=== PATIENT | male | born 1945 | race Caucasian/White ===

== ENCOUNTER → 2017-06-13 | Outpatient (CLI) | payer OTHER ==
[~2017-06-13] MED LIST: IOPAMIDOL (ISOVUE-370) 150 ML BTL IV ONE
== END ==
LOC: CIMAGING 08:20
PROVIDERS: ATTEND Internal Medicine
DX: I77.1 Stricture of artery (principal)
CPT/HCPCS: 75635; Q9967

== ENCOUNTER → 2017-06-22 | Outpatient (CLI) | payer OTHER | LOC: FIMAGING 07:51 | PROVIDERS: ATTEND Internal Medicine | DX: M51.46 Schmorl's nodes, lumbar region (principal); R60.9 Edema, unspecified; M47.899 Other spondylosis, site unspecified ==

== ENCOUNTER → 2017-07-01 | Outpatient (CLI) | payer OTHER | LOC: BRMIMAGING 08:25 | PROVIDERS: ATTEND Internal Medicine | DX: Z13.820 Encounter for screening for osteoporosis (principal); M51.47 Schmorl's nodes, lumbosacral region; Z82.62 Family history of osteoporosis ==